=== PATIENT | male | born 2000 | race Two or more races ===

== ENCOUNTER 2021-01-24 13:03 | Emergency (ER) | payer SELFPAY ==
[2021-01-24] MEDS ORDERED: Ketorolac 30 MG/ML SDV IVPUSH ONE (13:39)
[2021-01-24] MEDS ORDERED: Sodium Chloride 0.9% 1,000 ML IV ONE ×3 (13:39→14:44)
[2021-01-24] MEDS ORDERED: Ondansetron 4 MG/2 ML SDV IVPUSH ONE (13:39)
--- NOTE | 2021-01-24 13:45 | EDM.PDOC ---
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 he has been lightheaded, trouble breathing, face tingling, feeling faint, dizzy no GUERRERO/abd pain/CP, has had "funny feeling" at his L breast no f/c/d no have emesis today prior to arrival slept well last night, went to work at 6:45a, did not feel well, kept working, comes to ED after V ate chicken sandwich and toast today drinking Gatorade x 2 (has one with him), pop, water, OJ no COVID vax, had COVID May 2020 drank 2 light beers yesterday, none today Left Chest Pain Score (Numeric/FACES): 3 - Related Data Allergies Allergy/AdvReac Type Severity Reaction Status Date / Time No Known Allergies Allergy Verified 01/24/21 13:27 Home Meds: Home Meds NK [No Known Home Meds] 01/24/21 [History] Past Medical History - Past Health History Medical/Surgical History: Denies Medical/Surgical History Gastrointestinal History: Reports: Hepatitis Other Gastrointestinal History: Hep B Musculoskeletal History: Reports: Other (See Below) Other Musculoskeletal History: Fracture both collarbones and left hip Psychiatric History: Reports: Anxiety - Infectious Disease History Infectious Disease History: Reports: Hepatitis B Social & Family History - Family History Family Medical History: No Pertinent Family History - Tobacco Use Tobacco Use Status *Q: Current Every Day Tobacco User Years of Tobacco use: 6 Packs/Tins Daily: 1 - Caffeine Use Caffeine Use: Reports: Energy Drinks - Recreational Drug Use Recreational Drug Use: No ED ROS GENERAL - Review of Systems Review Of Systems: See Below Constitutional: Reports: No Symptoms HEENT: Reports: No Symptoms Respiratory: Reports: No Symptoms. Denies: Shortness of Breath, Cough Cardiovascular: Reports: No Symptoms Endocrine: Reports: No Symptoms GI/Abdominal: Reports: Nausea, Vomiting. Denies: Abdominal Pain, Diarrhea : Reports: No Symptoms Musculoskeletal: Reports: No Symptoms Skin: Reports: No Symptoms Neurological: Reports: No Symptoms Psychiatric: Reports: No Symptoms Hematologic/Lymphatic: Reports: No Symptoms Immunologic: Reports: No Symptoms ED EXAM, GENERAL - Physical Exam Exam: See Below Exam Limited By: No Limitations General Appearance: Alert, WD/WN, Other (alert, nontoxic, sit on edge of bed, holding emesis bag with 150 ml emesis) Eye Exam: Bilateral Eye: EOMI, PERRL Nose: Normal Inspection, Normal Mucosa, No Blood Throat/Mouth: Normal Inspection, Normal Lips, Normal Teeth, Normal Gums, Normal Oropharynx, Normal Voice, No Airway Compromise Head: Atraumatic, Normocephalic Neck: Normal Inspection, Supple, Non-Tender, Full Range of Motion. No: Lymphadenopathy (R), Lymphadenopathy (L) Respiratory/Chest: No Respiratory Distress, Lungs Clear, Normal Breath Sounds, No Accessory Muscle Use, Chest Non-Tender Cardiovascular: Regular Rate, Rhythm, No Edema, No Gallop, No Murmur GI/Abdominal: Normal Bowel Sounds, Soft, Non-Tender, No Organomegaly, No Distention Back Exam: Normal Inspection, Full Range of Motion. No: CVA Tenderness (R), CVA Tenderness (L) Extremities: Normal Inspection, Non-Tender, No Pedal Edema Neurological: Alert, Oriented, CN II-XII Intact, Normal Cognition, No Motor/Sensory Deficits Psychiatric: Normal Affect, Normal Mood Skin Exam: Warm, Dry, Intact, Normal Color, No Rash Lymphatic: No Adenopathy #1 Interpretation EKG Date: 01/24/21 Time: 14:16 Rhythm: NSR Rate (Beats/Min): 81 [place]: Normal P-Wave: Present QRS: Normal ST-T: Normal QT: Normal Comparison: NA - No Prior EKG EKG Interpretation Comments: wnl for age Course - Vital Signs Last Recorded V/S: Last Vital Signs Temp 37.3 C 01/24/21 13:11 Pulse 99 01/24/21 13:11 Resp 16 01/24/21 13:11 BP 142/88 H 01/24/21 13:11 Pulse Ox 96 01/24/21 13:11 - Orders/Labs/Meds Orders: Active Orders 24 hr Category Date Time Status EKG Documentation Completion [RC] STAT Care 01/24/21 14:17 Active EKG 12 Lead [EK] Routine Ther 01/24/21 14:17 Ordered Labs: Laboratory Tests 01/24/21 01/24/21 01/24/21 Range/Units 13:55 13:55 13:55 WBC 5.2 (3.2-10.1) x10-3/uL RBC 5.15 (3.90-5.90) x10(6)uL Hgb 14.8 (12.9-17.7) g/dL Hct 44.0 (38.3-50.1) % MCV 85.4 (80.8-98.7) fL MCH 28.8 (27.0-33.3) pg MCHC 33.7 (28.7-35.3) g/dL RDW 15.2 H (12.4-15.0) % Plt Count 285 (117-477) x10(3)uL MPV 7.6 (6.7-11.0) fL Neut % (Auto) 67.4 (40.3-71.8) % Lymph % (Auto) 21.2 (15.8-45.3) % [place] % (Auto) 9.8 (5.5-15.2) % Eos % (Auto) 1.3 (0.1-6.8) % Baso % (Auto) 0.3 (0.3-3.8) % Neut # (Auto) 3.5 (1.7-6.9) x10-3/uL Lymph # (Auto) 1.1 (0.5-4.5) x10-3/uL [place] # (Auto) 0.5 (0.0-1.2) x10-3/uL Eos # (Auto) 0.1 (0.0-0.6) x10-3/uL Baso # (Auto) 0.0 (0.0-0.3) x10-3/uL Sodium 145 (135-145) mmol/L Potassium 3.7 (3.5-5.3) mmol/L Chloride 104 (100-110) mmol/L Carbon Dioxide 28 (21-32) mmol/L BUN 19 H (7-18) mg/dL Creatinine 1.0 (0.70-1.30) mg/dL Est Cr Clr Drug Dosing 119.64 mL/min Estimated GFR (MDRD) > 60 (>60) BUN/Creatinine Ratio 19.0 (9-20) Glucose 87 (80-116) mg/dL Calcium 9.0 (8.6-10.2) mg/dL Total Bilirubin 0.7 (0.1-1.3) mg/dL AST 18 (5-25) IU/L ALT 26 (12-36) U/L Alkaline Phosphatase 96 (56-112) IU/L Creatine Kinase 332 H* (60-160) IU/L Troponin I < 4.0 L (4.0-60.3) pg/mL C-Reactive Protein < 0.2 L (0.5-0.9) mg/dL NT-Pro-B Natriuret Pep (<=125) pg/mL Total Protein 7.8 (6.0-8.0) g/dL Albumin 4.3 (3.5-5.2) g/dL Globulin 3.5 g/dL Albumin/Globulin Ratio 1.2 Lipase 72 L (73-393) U/L Urine Color (YELLOW) Urine Appearance (CLEAR) Urine pH (5.0-6.5) Ur Specific Pr[place] (1.010-1.025) Urine Protein (NEGATIVE) mg/dL Urine Glucose (UA) (NORMAL) mg/dL Urine Ketones (NEGATIVE) mg/dL Urine Occult Blood (NEGATIVE) Urine Nitrite (NEGATIVE) Urine Bilirubin (NEGATIVE) Urine Urobilinogen (NEGATIVE) mg/dL Ur Leukocyte Esterase (NEGATIVE) Urine RBC (0-5) Urine WBC (0-5) Ur Squamous Epith Cells (NS,R,O) Urine Bacteria (NS) 01/24/21 01/24/21 01/24/21 Range/Units 14:55 16:00 16:00 WBC (3.2-10.1) x10-3/uL RBC (3.90-5.90) x10(6)uL Hgb (12.9-17.7) g/dL Hct (38.3-50.1) % MCV (80.8-98.7) fL MCH (27.0-33.3) pg MCHC (28.7-35.3) g/dL RDW (12.4-15.0) % Plt Count (117-477) x10(3)uL MPV (6.7-11.0) fL Neut % (Auto) (40.3-71.8) % Lymph % (Auto) (15.8-45.3) % [place] % (Auto) (5.5-15.2) % Eos % (Auto) (0.1-6.8) % Baso % (Auto) (0.3-3.8) % Neut # (Auto) (1.7-6.9) x10-3/uL Lymph # (Auto) (0.5-4.5) x10-3/uL [place] # (Auto) (0.0-1.2) x10-3/uL Eos # (Auto) (0.0-0.6) x10-3/uL Baso # (Auto) (0.0-0.3) x10-3/uL Sodium (135-145) mmol/L Potassium (3.5-5.3) mmol/L Chloride (100-110) mmol/L Carbon Dioxide (21-32) mmol/L BUN (7-18) mg/dL Creatinine (0.70-1.30) mg/dL Est Cr Clr Drug Dosing mL/min Estimated GFR (MDRD) (>60) BUN/Creatinine Ratio (9-20) Glucose (80-116) mg/dL Calcium (8.6-10.2) mg/dL Total Bilirubin (0.1-1.3) mg/dL AST (5-25) IU/L ALT (12-36) U/L Alkaline Phosphatase (56-112) IU/L Creatine Kinase (60-160) IU/L Troponin I < 4.0 L (4.0-60.3) pg/mL C-Reactive Protein (0.5-0.9) mg/dL NT-Pro-B Natriuret Pep 9 (<=125) pg/mL Total Protein (6.0-8.0) g/dL Albumin (3.5-5.2) g/dL Globulin g/dL Albumin/Globulin Ratio Lipase (73-393) U/L Urine Color Yellow (YELLOW) Urine Appearance Clear (CLEAR) Urine pH 6.0 (5.0-6.5) Ur Specific [place] 1.005 L (1.010-1.025) Urine Protein Negative (NEGATIVE) mg/dL Urine Glucose (UA) Normal (NORMAL) mg/dL Urine Ketones Negative (NEGATIVE) mg/dL Urine Occult Blood Negative (NEGATIVE) Urine Nitrite Negative (NEGATIVE) Urine Bilirubin Negative (NEGATIVE) Urine Urobilinogen Normal (NEGATIVE) mg/dL Ur Leukocyte Esterase Negative (NEGATIVE) Urine RBC Not seen (0-5) Urine WBC 0-5 (0-5) Ur Squamous Epith Cells Few H (NS,R,O) Urine Bacteria Rare H (NS) Meds: Medications Discontinued Medications Generic Name Dose Route Start Last Admin Trade Name Freq PRN Reason Stop Dose Admin Sodium Chloride 1,000 mls @ 999 mls/hr 01/24/21 13:39 01/24/21 13:43 Normal Saline IV 01/24/21 14:39 999 mls/hr .BOLUS ONE Administration Sodium Chloride 1,000 mls @ 999 mls/hr 01/24/21 13:40 01/24/21 14:48 Normal Saline IV 01/24/21 14:40 999 mls/hr .BOLUS ONE Administration Sodium Chloride 1,000 mls @ 999 mls/hr 01/24/21 14:44 01/24/21 15:53 Normal Saline IV 01/24/21 15:44 999 mls/hr .BOLUS ONE Administration Ketorolac Tromethamine 30 mg 01/24/21 13:39 01/24/21 13:43 Ketorolac 30 Mg/Ml Sdv IVPUSH 01/24/21 13:40 30 mg ONETIME ONE Administration Ondansetron HCl 4 mg 01/24/21 13:39 01/24/21 13:43 Ondansetron 4 Mg/2 Ml Sdv IVPUSH 01/24/21 13:40 4 mg ONETIME ONE Administration - Re-Assessments/Exams Free Text/Narrative Re-Assessment/Exam: 01/24/21 17:07 pt with inc'd BUN and CK c/w mild to mod dehydration u/a after 1 liter NS was unremarkable given 3 liters of NS total pt reports h/o anxiety, does appear mildly anxious here stated he did not feel better after IVFs which is inconsistent with physiologic parameters and seems c/w anxiety he had vague, nonspecific complaints about his heart with palpitations at times going back to when he had COVID in May, however trop x 2 (2h apart) and BNP were neg without evidence of CMP or CVD, EKG was WNL for age, f/u with a local PCP was recommended as pt stated he was going to live and work in the area indefinitely states he is living with his boss, that there are just the 2 of them in the household Departure - Departure Time of Disposition: 17:05 Disposition: Home, Self-Care 01 Condition: Good Clinical Impression: Dehydration, Elevated BUN, Elevated creatine kinase - Discharge Information *PRESCRIPTION DRUG MONITORING PROGRAM REVIEWED*: Not Applicable *COPY OF PRESCRIPTION DRUG MONITORING REPORT IN PATIENT YANELY: Not Applicable Instructions: Rehydration, Adult Referrals: PCP,None [Primary Care Provider] - Forms: ED Department Discharge Additional Instructions: Maintain fluids, at least 4 liters daily without caffeine when working in hot weather. Rest this evening. May return to work tomorrow. See a primary care physician in the next week for follow up and further recommendations. Sepsis Event Note (ED) - Evaluation Sepsis Screening Result: No Definite Risk - Focused Exam Vital Signs: Vital Signs Temp Pulse Resp BP Pulse Ox 01/24/21 13:11 37.3 C 99 16 142/88 H 96 - My Orders Last 24 Hours: My Active Orders 01/24/21 14:17 EKG Documentation Completion [RC] STAT EKG 12 Lead [EK] Routine - Assessment/Plan Last 24 Hours: My Active Orders 01/24/21 14:17 EKG Documentation Completion [RC] STAT EKG 12 Lead [EK] Routine
== END 2021-01-24 17:15 | disposition home or self-care (01) ==
LOC: EDBD → FB.ED 13:03
DX: E86.0 Dehydration (principal); R74.8 Abnormal levels of other serum enzymes; R79.89 Other specified abnormal findings of blood chemistry; Z72.0 Tobacco use
CPT/HCPCS: 36415; 80053; 81001; 82550; 83690; 83880; 84484; 85025; 86140; 93005; 96374; 96375; 99284; J1885; J2405; J7030

== ENCOUNTER 2021-01-30 12:04 | Emergency (ER) | payer SELFPAY ==
[2021-01-30] MEDS ORDERED: LORazepam 2 MG/ML SDV IM STA (12:55)
--- NOTE | 2021-01-30 13:11 | EDM.PDOC ---
ED HPI GENERAL MEDICAL PROBLEM - General Chief Complaint: General Stated Complaint: DIZZY/SOB Time Seen by Provider: 01/30/21 12:10 Source of Information: Reports: Patient History Limitations: Reports: No Limitations - History of Present Illness INITIAL COMMENTS - FREE TEXT/NARRATIVE: Patient presented to the ED because of dyspnea for 1 month. He was diagnosed with Anxiety 4 months ago while he was in [place] and is supposed to be taking Prozac 20 mg daily but has not filled his prescription. - Related Data Allergies Allergy/AdvReac Type Severity Reaction Status Date / Time No Known Allergies Allergy Verified 01/24/21 13:27 Home Meds: Home Meds FLUoxetine HCl [Prozac] 20 mg PO DAILY #30 capsule 01/30/21 [Rx] Past Medical History - Past Health History Medical/Surgical History: Denies Medical/Surgical History Gastrointestinal History: Reports: Hepatitis Other Gastrointestinal History: Hep B Musculoskeletal History: Reports: Other (See Below) Other Musculoskeletal History: Fracture both collarbones and left hip Psychiatric History: Reports: Anxiety - Infectious Disease History Infectious Disease History: Reports: Hepatitis B Social & Family History - Family History Family Medical History: No Pertinent Family History - Tobacco Use Tobacco Use Status *Q: Current Every Day Tobacco User Years of Tobacco use: 5 Packs/Tins Daily: 0.5 - Caffeine Use Caffeine Use: Reports: Soda - Recreational Drug Use Recreational Drug Use: No ED ROS GENERAL - Review of Systems Review Of Systems: See Below Constitutional: Reports: No Symptoms HEENT: Reports: No Symptoms Respiratory: Reports: Shortness of Breath Cardiovascular: Reports: No Symptoms Endocrine: Reports: No Symptoms GI/Abdominal: Reports: No Symptoms : Reports: No Symptoms Musculoskeletal: Reports: No Symptoms Skin: Reports: No Symptoms Neurological: Reports: No Symptoms Psychiatric: Reports: Anxiety Hematologic/Lymphatic: Reports: No Symptoms ED EXAM, GENERAL - Physical Exam Exam: See Below Exam Limited By: No Limitations General Appearance: Alert, No Apparent Distress Eye Exam: Bilateral Eye: PERRL Ears: Normal External Exam, Normal [place] Nose: Normal Inspection, Normal Mucosa, No Blood Throat/Mouth: Normal Inspection, Normal Lips, Normal Teeth Head: Atraumatic, Normocephalic Neck: Normal Inspection, Supple, Non-Tender, Full Range of Motion Respiratory/Chest: No Respiratory Distress, Lungs Clear, Normal Breath Sounds Cardiovascular: Normal Peripheral Pulses, Regular Rate, Rhythm, No Edema, No Gallop, No JVD, No Murmur, No Rub GI/Abdominal: Normal Bowel Sounds, Soft, Non-Tender, No Organomegaly, No Distention, No Abnormal Bruit, No Mass Back Exam: Normal Inspection, Full Range of Motion Extremities: Normal Inspection, Normal Range of Motion, Non-Tender #1 Interpretation EKG Date: 01/30/21 Time: 12:25 Rhythm: NSR Rate (Beats/Min): 67 [place]: Normal P-Wave: Present QRS: Normal ST-T: Normal QT: Normal Comparison: NA - No Prior EKG EKG Interpretation Comments: NSR Course - Vital Signs Text/Narrative:: Ativan 1 mg IM x1 Last Recorded V/S: Last Vital Signs Temp 36.4 C 01/30/21 12:05 Pulse 75 01/30/21 12:05 Resp 20 01/30/21 12:05 BP 128/83 01/30/21 12:05 Pulse Ox 96 01/30/21 12:05 - Orders/Labs/Meds Meds: Medications Discontinued Medications Generic Name Dose Route Start Last Admin Trade Name Johnathon PRN Reason Stop Dose Admin Lorazepam 1 mg 01/30/21 12:55 01/30/21 13:09 Lorazepam 2 Mg/Ml Sdv IM 01/30/21 12:56 1 mg NOW STA Administration Departure - Departure Time of Disposition: 13:10 Disposition: Home, Self-Care 01 Condition: Good Clinical Impression: Anxiety - Discharge Information Prescriptions: FLUoxetine HCl [Prozac] 20 mg PO DAILY #30 capsule Instructions: Generalized Anxiety Disorder, Adult, Managing Anxiety, Adult Referrals: PCP,None [Primary Care Provider] - Forms: ED Department Discharge Additional Instructions: Please read discharge instructions on anxiety disorder Take prozac 20 mg daily Follow up with your doctor after 2 weeks to see how you are doing with the the prozac Call either [facility] or [facility] in [place] to schedule an appointment Sepsis Event Note (ED) - Evaluation Sepsis Screening Result: No Definite Risk - Focused Exam Vital Signs: Vital Signs Temp Pulse Resp BP Pulse Ox 01/30/21 12:05 36.4 C 75 20 128/83 96
== END 2021-01-30 13:32 | disposition home or self-care (01) ==
LOC: FB.ED 12:04
DX: F41.9 Anxiety disorder, unspecified (principal); Z72.0 Tobacco use; Z79.899 Other long term (current) drug therapy
CPT/HCPCS: 96372; 99283; J2060

== ENCOUNTER 2021-02-08 11:18 | Emergency (ER) | payer SELFPAY ==
[2021-02-08] MEDS ORDERED: Sodium Chloride 0.9% 1,000 ML IV ONE ×4 (11:45→15:55)
[2021-02-08] MEDS ORDERED: diphenhydrAMINE 50 MG/ML SDV IVPUSH ONE ×2 (11:45→15:55)
[2021-02-08] MEDS ORDERED: Ondansetron 4 MG/2 ML SDV IVPUSH ONE ×2 (11:45→15:55)
[2021-02-08] MEDS ORDERED: Ketorolac 30 MG/ML SDV IVPUSH ONE (11:45)
--- NOTE | 2021-02-08 11:54 | EDM.PDOC ---
ED HPI GENERAL MEDICAL PROBLEM - General Stated Complaint: THROWING UP BLOOD/DIZZY Time Seen by Provider: 02/08/21 11:45 Source of Information: Reports: Patient, Other (friend) History Limitations: Reports: No Limitations Chest Pain Score (Numeric/FACES): 7 - Related Data Allergies Allergy/AdvReac Type Severity Reaction Status Date / Time No Known Allergies Allergy Verified 01/24/21 13:27 Home Meds: Home Meds Omeprazole 20 mg PO DAILY #14 capsule. 02/08/21 [Rx] Ondansetron [Ondansetron ODT] 4 mg PO Q6H PRN #8 tab.abdidis 02/08/21 [Rx] Past Medical History - Past Health History Medical/Surgical History: Denies Medical/Surgical History Gastrointestinal History: Reports: Hepatitis Other Gastrointestinal History: Hep B Musculoskeletal History: Reports: Other (See Below) Other Musculoskeletal History: Fracture both collarbones and left hip Psychiatric History: Reports: Anxiety - Infectious Disease History Infectious Disease History: Reports: Hepatitis B Social & Family History - Family History Family Medical History: No Pertinent Family History - Caffeine Use Caffeine Use: Reports: Soda ED ROS GENERAL - Review of Systems Review Of Systems: See Below Constitutional: Reports: No Symptoms HEENT: Reports: No Symptoms Respiratory: Reports: No Symptoms Cardiovascular: Reports: No Symptoms Endocrine: Reports: No Symptoms GI/Abdominal: Reports: Abdominal Pain : Reports: No Symptoms Musculoskeletal: Reports: No Symptoms Skin: Reports: No Symptoms Neurological: Reports: No Symptoms Psychiatric: Reports: No Symptoms Hematologic/Lymphatic: Reports: No Symptoms Immunologic: Reports: No Symptoms ED EXAM, GI/ABD - Physical Exam Exam: See Below Exam Limited By: No Limitations General Appearance: Alert, WD/WN, Mild Distress Ears: Hearing Grossly Normal Nose: Normal Inspection Throat/Mouth: Normal Inspection, Normal Lips, Normal Voice, No Airway Compromise Head: Atraumatic, Normocephalic Neck: Normal Inspection, Supple, Non-Tender, Full Range of Motion. No: Lymphadenopathy (R), Lymphadenopathy (L) Respiratory/Chest: No Respiratory Distress, Lungs Clear, Normal Breath Sounds, No Accessory Muscle Use, Chest Non-Tender Cardiovascular: Regular Rate, Rhythm, No Edema, No Murmur GI/Abdominal Exam: Normal Bowel Sounds, Other (1+ tender across entire upper abd that improved with fluids and meds) Back Exam: Normal Inspection, Full Range of Motion Extremities: Normal Inspection, Non-Tender, No Pedal Edema Neurological: Alert, Oriented, CN II-XII Intact, Normal Cognition, No Motor/Sensory Deficits Skin Exam: Warm, Dry, Intact, Normal Color, No Rash Lymphatic: No Adenopathy #1 Interpretation EKG Date: 02/08/21 Time: 00:23 Rhythm: NSR Rate (Beats/Min): 87 Boaz: Normal P-Wave: Present ST-T: Normal Comparison: No Change EKG Interpretation Comments: NSC c/w 12-11-18, mild inc'd QT from 440 to 491 now, inc'd [place] 210 to 225, LAFB, baseline artifact, no acute/ischemic/ST changes Course - Vital Signs Last Recorded V/S: Last Vital Signs Temp 36.8 C 02/08/21 11:18 Pulse 117 H 02/08/21 11:18 Resp 21 H 02/08/21 11:18 BP 141/92 H 02/08/21 11:18 Pulse Ox 98 02/08/21 11:18 - Orders/Labs/Meds Orders: Active Orders 24 hr Category Date Time Status EKG Documentation Completion [RC] ASDIRECTED Care 02/08/21 16:10 Ordered EKG 12 Lead [EK] Routine Ther 02/08/21 16:10 Ordered Labs: Laboratory Tests 02/08/21 02/08/21 02/08/21 Range/Units 11:55 11:55 11:55 WBC 10.2 H (3.2-10.1) x10-3/uL RBC 5.73 (3.90-5.90) x10(6)uL Hgb 16.1 (12.9-17.7) g/dL Hct 48.5 (38.3-50.1) % MCV 84.7 (80.8-98.7) fL MCH 28.1 (27.0-33.3) pg MCHC 33.2 (28.7-35.3) g/dL RDW 14.9 (12.4-15.0) % Plt Count 321 (117-477) x10(3)uL MPV 7.5 (6.7-11.0) fL Neut % (Auto) 82.4 H (40.3-71.8) % Lymph % (Auto) 10.5 L (15.8-45.3) % [place] % (Auto) 6.8 (5.5-15.2) % Eos % (Auto) 0.1 (0.1-6.8) % Baso % (Auto) 0.2 L (0.3-3.8) % Neut # (Auto) 8.4 H (1.7-6.9) x10-3/uL Lymph # (Auto) 1.1 (0.5-4.5) x10-3/uL [place] # (Auto) 0.7 (0.0-1.2) x10-3/uL Eos # (Auto) 0.0 (0.0-0.6) x10-3/uL Baso # (Auto) 0.0 (0.0-0.3) x10-3/uL Sodium 143 (135-145) mmol/L Potassium 4.2 (3.5-5.3) mmol/L Chloride 101 (100-110) mmol/L Carbon Dioxide 25 (21-32) mmol/L BUN 12 (7-18) mg/dL Creatinine 0.9 (0.70-1.30) mg/dL Est Cr Clr Drug Dosing 141.31 mL/min Estimated GFR (MDRD) > 60 (>60) BUN/Creatinine Ratio 13.3 (9-20) Glucose 102 (80-116) mg/dL Calcium 9.5 (8.6-10.2) mg/dL Total Bilirubin 0.7 (0.1-1.3) mg/dL AST 16 D (5-25) IU/L ALT 26 (12-36) U/L Alkaline Phosphatase 87 (56-112) IU/L Creatine Kinase 355 H* (60-160) IU/L Troponin I < 4.0 L (4.0-60.3) pg/mL C-Reactive Protein < 0.2 L (0.5-0.9) mg/dL Total Protein 8.6 H (6.0-8.0) g/dL Albumin 4.8 (3.5-5.2) g/dL Globulin 3.8 g/dL Albumin/Globulin Ratio 1.3 Lipase 69 L (73-393) U/L Urine Color (YELLOW) Urine Appearance (CLEAR) Urine pH (5.0-6.5) Ur Specific [place] (1.010-1.025) Urine Protein (NEGATIVE) mg/dL Urine Glucose (UA) (NORMAL) mg/dL Urine Ketones (NEGATIVE) mg/dL Urine Occult Blood (NEGATIVE) Urine Nitrite (NEGATIVE) Urine Bilirubin (NEGATIVE) Urine Urobilinogen (NEGATIVE) mg/dL Ur Leukocyte Esterase (NEGATIVE) Urine RBC (0-5) Urine WBC (0-5) Ur Squamous Epith Cells (NS,R,O) Urine Bacteria (NS) Urine Opiates Screen (NEGATIVE) Ur Oxycodone Screen (NEGATIVE) Ur Propoxyphene Screen (NEGATIVE) Ur Barbituates Screen (NEGATIVE) Ur Tricyclics Screen (NEGATIVE) Ur Phencyclidine Scrn (NEGATIVE) Ur Amphetamine Screen (NEGATIVE) Urine MDMA Screen (NEGATIVE) U Benzodiazepines Scrn (NEGATIVE) U Cocaine Metab Screen (NEGATIVE) U Marijuana (THC) Screen (NEGATIVE) Ethyl Alcohol (<0.03) % 02/08/21 02/08/21 02/08/21 Range/Units 11:55 17:00 17:01 WBC (3.2-10.1) x10-3/uL RBC (3.90-5.90) x10(6)uL Hgb (12.9-17.7) g/dL Hct (38.3-50.1) % MCV (80.8-98.7) fL MCH (27.0-33.3) pg MCHC (28.7-35.3) g/dL RDW (12.4-15.0) % Plt Count (117-477) x10(3)uL MPV (6.7-11.0) fL Neut % (Auto) (40.3-71.8) % Lymph % (Auto) (15.8-45.3) % [place] % (Auto) (5.5-15.2) % Eos % (Auto) (0.1-6.8) % Baso % (Auto) (0.3-3.8) % Neut # (Auto) (1.7-6.9) x10-3/uL Lymph # (Auto) (0.5-4.5) x10-3/uL [place] # (Auto) (0.0-1.2) x10-3/uL Eos # (Auto) (0.0-0.6) x10-3/uL Baso # (Auto) (0.0-0.3) x10-3/uL Sodium (135-145) mmol/L Potassium (3.5-5.3) mmol/L Chloride (100-110) mmol/L Carbon Dioxide (21-32) mmol/L BUN (7-18) mg/dL Creatinine (0.70-1.30) mg/dL Est Cr Clr Drug Dosing mL/min Estimated GFR (MDRD) (>60) BUN/Creatinine Ratio (9-20) Glucose (80-116) mg/dL Calcium (8.6-10.2) mg/dL Total Bilirubin (0.1-1.3) mg/dL AST (5-25) IU/L ALT (12-36) U/L Alkaline Phosphatase (56-112) IU/L Creatine Kinase (60-160) IU/L Troponin I (4.0-60.3) pg/mL C-Reactive Protein (0.5-0.9) mg/dL Total Protein (6.0-8.0) g/dL Albumin (3.5-5.2) g/dL Globulin g/dL Albumin/Globulin Ratio Lipase (73-393) U/L Urine Color Yellow (YELLOW) Urine Appearance Clear (CLEAR) Urine pH 6.5 (5.0-6.5) Ur Specific [place] 1.020 (1.010-1.025) Urine Protein Negative (NEGATIVE) mg/dL Urine Glucose (UA) Normal (NORMAL) mg/dL Urine Ketones Negative (NEGATIVE) mg/dL Urine Occult Blood Negative (NEGATIVE) Urine Nitrite Negative (NEGATIVE) Urine Bilirubin Negative (NEGATIVE) Urine Urobilinogen Normal (NEGATIVE) mg/dL Ur Leukocyte Esterase Negative (NEGATIVE) Urine RBC 0-5 (0-5) Urine WBC 0-5 (0-5) Ur Squamous Epith Cells Rare (NS,R,O) Urine Bacteria Occasional H (NS) Urine Opiates Screen Negative (NEGATIVE) Ur Oxycodone Screen Negative (NEGATIVE) Ur Propoxyphene Screen Negative (NEGATIVE) Ur Barbituates Screen Negative (NEGATIVE) Ur Tricyclics Screen Negative (NEGATIVE) Ur Phencyclidine Scrn Negative (NEGATIVE) Ur Amphetamine Screen Positive H (NEGATIVE) Urine MDMA Screen Negative (NEGATIVE) U Benzodiazepines Scrn Negative (NEGATIVE) U Cocaine Metab Screen Negative (NEGATIVE) U Marijuana (THC) Screen Negative (NEGATIVE) Ethyl Alcohol 0.06 H (<0.03) % Meds: Medications Discontinued Medications Generic Name Dose Route Start Last Admin Trade Name Johnathon PRN Reason Stop Dose Admin Acetaminophen 1,000 mg 02/08/21 15:55 02/08/21 16:08 Acetaminophen 500 Mg Tab PO 02/08/21 15:56 1,000 mg ONETIME ONE Administration Al Hydroxide/Mg Hydroxide 30 0 ml 02/08/21 13:13 02/08/21 13:16 ml/ Lidocaine HCl 15 ml PO 02/08/21 13:14 45 ml ONETIME ONE Administration Diphenhydramine HCl 25 mg 02/08/21 11:45 02/08/21 11:50 Diphenhydramine 50 Mg/Ml Sdv IVPUSH 02/08/21 11:46 25 mg ONETIME ONE Administration Diphenhydramine HCl 25 mg 02/08/21 15:55 02/08/21 16:08 Diphenhydramine 50 Mg/Ml Sdv IVPUSH 02/08/21 15:56 25 mg ONETIME ONE Administration Sodium Chloride 1,000 mls @ 999 mls/hr 02/08/21 11:45 02/08/21 11:49 Normal Saline IV 02/08/21 12:45 999 mls/hr .BOLUS ONE Administration Sodium Chloride 1,000 mls @ 999 mls/hr 02/08/21 13:11 02/08/21 13:13 Normal Saline IV 02/08/21 14:11 999 mls/hr .BOLUS ONE Administration Sodium Chloride 1,000 mls @ 999 mls/hr 02/08/21 14:32 02/08/21 14:39 Normal Saline IV 02/08/21 15:32 999 mls/hr .BOLUS ONE Administration Sodium Chloride 1,000 mls @ 999 mls/hr 02/08/21 15:55 02/08/21 16:00 Normal Saline IV 02/08/21 16:55 999 mls/hr .BOLUS ONE Administration Ketorolac Tromethamine 30 mg 02/08/21 11:45 02/08/21 11:50 Ketorolac 30 Mg/Ml Sdv IVPUSH 02/08/21 11:46 30 mg ONETIME ONE Administration Metoclopramide HCl 10 mg 02/08/21 13:12 02/08/21 13:16 Metoclopramide 10 Mg/2 Ml Sdv IVPUSH 02/08/21 13:13 10 mg ONETIME ONE Administration Ondansetron HCl 4 mg 02/08/21 11:45 02/08/21 11:49 Ondansetron 4 Mg/2 Ml Sdv IVPUSH 02/08/21 11:46 4 mg ONETIME ONE Administration Ondansetron HCl 4 mg 02/08/21 15:55 02/08/21 16:08 Ondansetron 4 Mg/2 Ml Sdv IVPUSH 02/08/21 15:56 4 mg ONETIME ONE Administration Pantoprazole Sodium 40 mg 02/08/21 15:55 02/08/21 16:09 Pantoprazole 40 Mg Vial IVPUSH 02/08/21 15:56 40 mg ONETIME ONE Administration - Re-Assessments/Exams Free Text/Narrative Re-Assessment/Exam: 02/08/21 17:45 4 liters NS required before pt produced a urine, u/a with no ketones and SG 1.020 pt aware that his ethanol level was at legal limit (80) at 11a and 300 at midnight pt also with meth in his urine [place] when his friend Antwan from [place] drove to [facility] and picked him up Antwan said that pt would be staying with him and [place] family [place] pt aware that he needs to address alcohol, meth and lifestyle issues 02/08/21 17:54 mild inc'd CK c/w meth use and dehydration Departure - Departure Time of Disposition: 17:34 Disposition: Home, Self-Care 01 Condition: Good Clinical Impression: Dehydration, Nausea and vomiting - Discharge Information *PRESCRIPTION DRUG MONITORING PROGRAM REVIEWED*: Not Applicable *COPY OF PRESCRIPTION DRUG MONITORING REPORT IN PATIENT YANELY: Not Applicable Prescriptions: Omeprazole 20 mg PO DAILY #14 capsule. Ondansetron [Ondansetron ODT] 4 mg PO Q6H PRN #8 tab.rapdis PRN Reason: Nausea Instructions: Nausea and Vomiting, Adult, Rehydration, Adult Referrals: PCP,None [Primary Care Provider] - Forms: ED Return to Work/School Form Additional Instructions: Avoid alcohol and street drugs. Maintain fluids, at least 2 liters daily without caffeine or alcohol when you are indoors, at least 4 liters daily when you are working outside in hot weather. Get adequate rest. Eat 3 meals a day. Do not eat skip meals. To decrease acid production, take omeprazole 20 mg 1 tab daily for 14 days. To coat and protect the lower esophagus and stomach, take liquid antacid (such as Maalox or Mylanta) 30 ml 4 times a day. For nausea, take ondansetron ODT 4 mg 1 tab under the tongue every 6 hours as needed. See your primary care physician/provider (PCP) in 5 days for further recommendations. See an alcohol counselor in the next 1-2 weeks, which you will find helpful as well. Sepsis Event Note (ED) - Focused Exam Vital Signs: Vital Signs Temp Pulse Resp BP Pulse Ox 02/08/21 11:18 36.8 C 117 H 21 H 141/92 H 98 - My Orders Last 24 Hours: My Active Orders 02/08/21 16:10 EKG Documentation Completion [RC] ASDIRECTED EKG 12 Lead [EK] Routine - Assessment/Plan Last 24 Hours: My Active Orders 02/08/21 16:10 EKG Documentation Completion [RC] ASDIRECTED EKG 12 Lead [EK] Routine
[2021-02-08] MEDS ORDERED: Metoclopramide 10 MG/2 ML SDV IVPUSH ONE (13:12)
[2021-02-08] MEDS ORDERED: Alum Hydroxide/Mag Hydroxide 30 ML, Lidocaine 2% 15 ML PO ONE ×2 (13:13)
[2021-02-08] MEDS ORDERED: Pantoprazole 40 MG Vial IVPUSH ONE (15:55)
[2021-02-08] MEDS ORDERED: Acetaminophen 500 MG Tab PO ONE (15:55)
== END 2021-02-08 17:50 | disposition home or self-care (01) ==
LOC: FB.ED 11:18
DX: E86.0 Dehydration (principal); R11.2 Nausea with vomiting, unspecified; Z79.899 Other long term (current) drug therapy
CPT/HCPCS: 36415; 80053; 80305; 80307; 81001; 82550; 83690; 84484; 85025; 86140; 93005; 96374; 96375; 96376; 99285; A9270; C9113; J1200; J1885; J2405; J2765; J7030